=== PATIENT | male | born 2005 | race Caucasian/White ===

== ENCOUNTER 2024-07-27 03:39 | Emergency (ER) | payer SELFPAY ==
[2024-07-27 03:43] VITALS: BP 154/93; PULSE 88; RESP 20; TEMP 37; O2SAT 100
--- NOTE | 2024-07-27 05:25 | PC.NURSE ---
pt present to ED c/o dizziness, chest pressure and SOB. Per pt has had a very stress full morning, no HX panic attacks.
--- NOTE | 2024-07-27 07:25 | ECG_ITS ---
Test Date: 2024-07-27 08:13:08 Measurements Intervals [place] Rate: 93 P: 41 [place]: 136 QRS: 66 QRSD: 82 T: 30 QT: 334 QTc: 417 Interpretive Statements SINUS RHYTHM MINIMAL Q WAVES- ANTEROLAT/INF LEADS BORDERLINE ECG No previous ECG available for comparison Electronically Signed On 07-27-2024 08:14:36 CDT by Mika Garcia D.O.
--- OUTSIDE RECORDS SUMMARY | 2024-07-27 07:35 | XMS_ITS | Patient Health Record ---
Author Organization [facility] Address [address] [place] [address] Care Team Providers Care Trimming Machine Set Up Operator Name Role Phone Mario Alberto Jp Primary Care Provider Allergies No Known Allergies Reason For Referral No Information Immunizations Vaccine Route Administration Date Status Comme nts VARICELLA IMMUNIZATION Unknown 08/01/2014 Administered TDAP VACCINE >7 IM Unknown 09/23/2015 Administered TDAP VACCINE >7 IM Unknown 07/26/2017 Administered TD VACCINE NO PRSRV >/= 7 IM Unknown 08/01/2014 Adminis tered POLIOVIRUS, IPV, SC Unknown 09/23/2015 Administered POLIOVIRUS, IPV, SC Unknown 07/26/2017 Administered poliovirus vaccine, unspecif ied formulation Unknown 08/01/2014 Administered PNEUMOCOCCAL VACC 13 ERNESTO IM Unknown 08/01/2014 Administ ered Pfizer COVID-19 Unknown 03/08/2021 Administered Pfizer COVID-19 Unknown 03/29/2021 Administered MMRV Unknown 11/22/2014 Administered MMR VACCINE, SC Unknown 08/01/2014 Administered Meningococcal MCV4O Unknown 09/23/2015 Administered Meningococcal MCV4O Unknown 04/02/2020 Administered MENB RP W/OMV VACCINE IM Unknown 09/23/2015 Administere d MENB RP W/OMV VACCINE IM Unknown 07/26/2017 Administere d Influenza, unspecified formu lation (CPT 40314 Inactive) Unknown 11/25/2017 Administered HPV VIRUS VACCINE 9 ERNESTO IM Unknown 07/26/2017 Administe red HPV VIRUS VACCINE 9 ERNESTO IM Unknown 04/14/2018 Administe red HEPB VACC PED/ADOL 3 DOSE IM Unknown 11/22/2014 Adminis tered HEPB VACC PED/ADOL 3 DOSE IM Unknown 09/23/2015 Adminis tered Hep B, unspecified formulati on (CPT 64655 Inactive) Unknown 08/01/2014 Administered HEP A VACC, PED/ADOL, 2 DOSE Unknown 08/01/2014 Adminis tered HEP A VACC, PED/ADOL, 2 DOSE Unknown 09/23/2015 Adminis tered FLU VAC NO PRSV 4 ERNESTO >6 MO Unknown 04/02/2020 Administ ered DTAP-IPV VACC 4-6 YR IM Unknown 11/22/2014 Administered Social History Tobacco Use: Social History Observation Description Date Details (start date - stop date) Never Smoker NA - NA Tobacco Use/Smoking Question Answer Notes Are you a nonsmoker Additional Findings: Tobacco Non-User Current no n-smoker Alcohol Screen (Audit-C) Question Answer Notes Did you have a drink containing alcohol in the p ast year? No Points 0 Interpretation Negative Sexual History Question Answer Notes Had sex in the past 12 months (vaginal, oral, or anal)? Yes with Women only Use protection? Yes How often? Most of the time Prevention strategies discussed: Condoms Tobacco use other than smoking: Question Answer Notes Are you an other tobacco user? No Problems Problem Type SNOMED Code ICD Code Onset Dates Problem Status W/U Status Risk Notes Problem BMI 30.0-30.9,ad ult (Z68.30) Active confirmed Plan Of Treatment Pending Test Test Name Order Date X ray : Ankle, right; 2 Views : 84238
--- OUTSIDE RECORDS SUMMARY | 2024-07-27 07:36 | XMS_ITS | Clinical Summary ---
Author Organization [facility] Address [address] [place] [address] Phone Care Team Providers Care Technology Risk Intern Name Role Phone Unavailable Primary Care Provider Unavailabl e Social History Tobacco Use Types Packs/Day Years Used Date Smoking Tobacco: Never Assessed Sex and Gender Information Value Date Recorded Sex Assigned at Not on file Legal Sex Male 10:00 AM CDT Gender Identity Not on file Sexual Orientation Not on file Plan of Treatment Not on file
--- NOTE | 2024-07-27 07:47 | ED_ITS ---
HPI - Arrhythmia/Palpitations General Chief Complaint: Anxiety Stated Complaint: racing heart, palpations Time Seen by Provider: 07/27/24 07:12 History of Present Illness HPI narrative: Pt feels like his heart is racing and then slowing down and then racing. Pt denies CP or SOB. Pt is anxious and watching monitor. Pt has no hsitory of this. Pt has no symptoms currently. Related Data Allergies Allergy/AdvReac Type Severity Reaction Status Date / Time No Known Allergies Allergy Verified 07/27/24 03:46 Review of Systems 2 Review of Systems: All systems reviewed & are unremarkable except as noted in HPI and below PMFSH Social History Social History Substance use type: does not use Exam 2 Const: General: healthy appearing and no acute distress Nutritional Appearance: well nourished Orientation/consciousness: patient oriented x3 Limitations: no limitations Chest: Chest palpation & inspection: normal inspection of the chest Resp: Effort & Inspection: normal respiratory effort Auscultation: clear to auscultation bilaterally Cardio: Rate: regular rate Rhythm: regular rhythm GI: GI Palp: Yes Soft to palpation and No Tenderness to palpation present (GI) Auscultation: normal bowel sounds Skin: General skin exam: normal color Wounds: no wounds Neuro: General: patient oriented x3, moves all extremities, no meningeal signs and no focal motor deficits Cranial nerves: Yes Nystagmus not present S peech: normal speech Extrem: General: normal to inspection and no clubbing, cyanosis or edema Psych: Mental Status: mental status grossly normal Affect: Anxious affect present Attitude: cooperative Course Vital Signs Vital signs: Vital Signs Temperature 98.6 F 07/27/24 03:43 Pulse Rate 88 07/27/24 03:43 Respiratory Rate 07/27/24 03:43 Blood Pressure 154/93 H 07/27/24 03:43 Pulse Oximetry 100 07/27/24 03:43 Oxygen Delivery Room Air 07/27/24 03:43 Temperature 98.6 F 07/27/24 03:43 Pulse Rate 88 07/27/24 03:43 Respiratory Rate 20 07/27/24 03:43 Blood Pressure 154/93 H 07/27/24 03:43 Pulse Oximetry 100 07/27/24 03:43 Oxygen Delivery Room Air 07/27/24 03:43 MDM - Arrhythmia/Palpitations MDM Narrative Medical decision making narrative: pt presents with feeling of heart racing and slowing and racing again. Pt quite anxious and this is most likely the issue but could be svt intermittent or electrolyte issue so will get ekg and labs. ekg and labs unremarkable. Likely anxiety. will prescribe a few atarax for sleep and give PCP for follow up. Instructed if continues to see PCP for event monitor. Lab Data 07/27/24 08:02 07/27/24 08:02 Labs: Lab Results 07/27/24 Range/Units 08:02 WBC 12.5 H (4.5-10.0) K/mm3 RBC 5.86 (4.6-6.20) M/mm3 Hgb 17.0 (14.0-18.0) g/dL Hct 49.2 (42.0-52.0) % MCV 84.0 (80-100) fl MCH 29.0 (26-34) pg MCHC 34.6 (32-36) g/dl RDW 12.4 (11.5-14.5) % Plt Count 184 (150-375) k/mm3 MPV 11.8 H (7.4-10.4) fl Immature Gran % (Auto) 0.2 (0-0.5) % Neut % (Auto) 59.6 (45.5-73.1) % Lymph % (Auto) 32.5 (18.3-44.2) % Dickson % (Auto) 6.1 (2.6-8.5) % Eos % (Auto) 1.2 (0-4.4) % Baso % (Auto) 0.4 (0.2-1.2) % Lymph # (Auto) 4.06 H (0.9-3.2) K/mm3 Dickson # (Auto) 0.8 H (0.1-0.6) K/mm3 Eos # (Auto) 0.2 (0-0.3) K/mm3 Baso # (Auto) 0.1 (0.0-0.1) K/mm3 Abs Immat Gran (auto) 0.03 (0.00-0.031) K/mm3 Absolute Neuts (auto) 7.5 H (1.3-6.7) K/mm3 Absolute Nucleated RBC 0.000 (0.0-0.012) K/mm3 Nucleated RBC % 0.0 (0.0-0.2) % Sodium 138 (137-145) mmol/L Potassium 4.2 (3.4-5.0) mmol/L Chloride 102 (98-107) mmol/L Carbon Dioxide 23 (22-30) mmol/L Anion Gap 13 H (4-12) mmol/L BUN 18 (9-20) mg/dL Creatinine 0.92 (0.7-1.3) mg/dL Estim Creat Clear Calc 123 ml/min Estimated GFR > 60 (59 - ) Glucose 107 (65-110) mg/dL Calcium 9.9 (8.4-10.2) mg/dL Total Bilirubin 0.4 (0.2-1.3) mg/dL AST 65 H (17-59) U/L ALT 119 H (6-50) U/L Alkaline Phosphatase 120 (38-126) U/L Troponin I < 0.012 (0.000-0.034) ng/mL Total Protein 8.5 H (6.3-8.2) g/dL Albumin 5.1 (3.5-5.1) g/dL Discharge Plan Discharge Clinical Impression: Acute anxiety Patient Disposition: Home Condition: Stable Instructions: Antibiotic Form, Anxiety (ED) Patient Language: Pashto Prescriptions: New hydroxyzine HCl 25 mg tablet 25 mg PO BID PRN (Reason: anxiety) Qty: 14 0RF Follow-up/Referrals: Flaco Palm MD [Physician] - UNKNOWN,DOCTOR [Primary Care Provider] - Stand Alone Forms: Work/School Release IP
[2024-07-27 08:10] LABS: Basophils Absolute Auto 0.1 K/mm3 (0.0-0.1); Basophils Percent Auto 0.4 % (0.2-1.2); Eosinophils Absolute Auto 0.2 K/mm3 (0-0.3); Eosinophils Percent Auto 1.2 % (0-4.4); Hematocrit 49.2 % (42.0-52.0); Immature Granulocyte Absolute 0.03 K/mm3 (0.00-0.031); Immature Granulocyte Percent A 0.2 % (0-0.5); Lymphocytes Absolute Auto 4.06 K/mm3 (0.9-3.2); Lymphocytes Percent Auto 32.5 % (18.3-44.2); Mean Corpuscular HGB Conc 34.6 g/dl (32-36); Mean Platelet Volume 11.8 fl (7.4-10.4); Monocytes Absolute Auto 0.8 K/mm3 (0.1-0.6); Monocytes Percent Auto 6.1 % (2.6-8.5); Neutrophils Absolute Auto 7.5 K/mm3 (1.3-6.7); Neutrophils Percent Auto 59.6 % (45.5-73.1); Platelet Count Result 184 k/mm3 (150-375); Red Blood Count 5.86 M/mm3 (4.6-6.20); Red Cell Distribution Width 12.4 % (11.5-14.5); White Blood Count 12.5 K/mm3 (4.5-10.0)
[2024-07-27 08:20] LABS: Alanine Aminotransferase 119 U/L (6-50); Albumin Level 5.1 g/dL (3.5-5.1); Alkaline Phosphatase 120 U/L (38-126); Anion Gap 13 mmol/L (4-12); Aspartate Amino Transferase 65 U/L (17-59); Bilirubin,Total 0.4 mg/dL (0.2-1.3); Blood Urea Nitrogen 18 mg/dL (9-20); Calcium 9.9 mg/dL (8.4-10.2); Carbon Dioxide 23 mmol/L (22-30); Chloride 102 mmol/L (98-107); Estimated CRCL calculation 123 ml/min; Estimated Glomerular Filt Rate > 60; Glucose 107 mg/dL (65-110); Potassium 4.2 mmol/L (3.4-5.0); Sodium 138 mmol/L (137-145); Total Protein 8.5 g/dL (6.3-8.2)
[2024-07-27 08:31] LABS: Troponin I < 0.012 ng/mL (0.000-0.034)
== END 2024-07-27 08:55 | disposition home or self-care (01) ==
PROVIDERS: Emergency Provider Emergency Medicine
DX: F41.9 Anxiety disorder, unspecified (principal); R94.31 Abnormal electrocardiogram [ECG] [EKG]
CPT/HCPCS: 36415; 80053; 84484; 85025; 93005; 99284